=== PATIENT | male | born 1970 | race Caucasian/White ===

== ENCOUNTER 2024-06-07 15:31 | Emergency (ER) | payer BC, MEDICARE ==
[~2024-06-07] VITALS: Ht 193 cm; Wt 136.4 kg
[2024-06-07 15:37] VITALS: BP 143/69; PULSE 95; RESP 18; O2SAT 97
[2024-06-07] MEDS ORDERED: NIRM1TAB9 PO (17:47)
[2024-06-07 18:15] VITALS: TEMP 99.4
== END 2024-06-07 18:20 | disposition home or self-care (01) ==
LOC: ER 15:32
DX: U07.1 COVID-19 (principal)
CPT/HCPCS: 36415; 71045; 87502; 87503; 87811; 99284